=== PATIENT | female | born 1950 | race Caucasian/White ===

== ENCOUNTER → 2017-01-10 | Outpatient (CLI) | payer OTHER, MEDICARE ==
[~2017-01-10] MED LIST: AMLO5TAB PO; BP MED; CENTRUM SILVER1 TA1 PO; EFFEXOR XR150 MG PO; ESTRADIOL0.5 MG PO; FISH OIL1000 MG PO; LORTAB 5/500 501 TAB PO; MOTRIN 400MG.400 MG PO; SIMVASTATIN10 MG PO
--- NOTE | 2017-01-14 11:30 | RADIOLOGY REPORT PS360 ---
DIG MAMM-SCREEN SHEILA W/CAD CAD Screening COMPARISON: Digital mammograms 12/25/2015 and follow-up additional views left breast 01/09/2016 INDICATION: There is no personal or family history of breast cancer. There has been previous breast reduction surgery bilaterally. TECHNIQUE: Standard CC and MLO images were obtained. R2 CAD reviewed. FINDINGS: Again noted is a diffusely dense and heterogenic parenchymal pattern primarily upper outer quadrants. Exaggerated cc views were obtained for better visualization of the upper outer quadrants of both breasts. There are few scattered benign-appearing calcifications in each breast. There is no new or suspicious lesion and there are no suspicious microcalcifications IMPRESSION: Dense and heterogenic parenchymal pattern with no suspicious lesion seen recommend yearly follow-up BI-RADS CATEGORY: 2_Benign RECOMMENDED FOLLOWUP: 12M 12 MONTH FOLLOW-UP (A letter has been sent to the patient regarding results of the study.)
== END ==
LOC: RAD 10:00
DX: Z12.31 Encounter for screening mammogram for malignant neoplasm of breast (principal)
CPT/HCPCS: G0202

== ENCOUNTER 2017-02-24 10:34 | Day surgery (SDC) | payer MEDICARE, OTHER ==
--- NOTE | 2017-02-24 12:33 | Operative Note ---
Colonoscopy ([facility]) Procedure date: 02/24/17 Date of : 46 Procedure:Colonoscopy Colonoscopy Indications: Mrs. Osborne is a 66-year-old female who is here for follow-up screening/ surveillance colonoscopy. She did have a colonoscopy in July [address] Terrance Zurita which was normal except for sigmoid diverticulosis. The patient does state that she has a long history of irritable bowel syndrome since [place]. The patient has some intermittent constipation and lower abdominal discomfort. She does take Metamucil daily. She uses dicyclomine when necessary. She does have some occasional bleeding especially after the bowel preparation. She reports no weight loss or family history of colon cancer. Performing Provider: Vaughn Elizondo MD Referrring Provider: Joseph Lynch M.D./Dorie RAMOS Sedation: Fentanyl 200 mg IV/Versed 9 mg IV Procedure: Prior to the procedure, a history and physical exam was performed, and patient medications and allergies were reviewed. The risks and benefits of the procedure and the sedation options and risks were discussed with the patient. All questions were answered and informed consent was obtained. Patient identification and proposed procedure were verified by the physician and the nurse. The patient was placed in a left lateral decubitus position. Throughout the procedure, the patient's blood pressure, pulse, and oxygen saturations were monitored continuously. Findings: On digital rectal examination there was normal rectal tone. There were no external hemorrhoids. The colonoscope was introduced through the anal canal to the rectum and advanced to the cecum. The ileocecal valve and appendiceal orifice were identified. The scope was advanced a short distance into the ileum which appeared grossly normal. The scope was then withdrawn into the colon. The cecum, ascending and transverse colon and mucosa were grossly normal. There were scattered diverticuli throughout the descending and sigmoid colon (LEFT colon). The rectum itself was normal. Upon retroflexion within the rectum there were grade 1-2 internal hemorrhoids. Impressions: 1. Left-sided diverticulosis 2. Grade 1-2 internal hemorrhoids Recommendations: The patient will not require screening/surveillance colonoscopy again for 10 years by ACS guidelines. I would encourage continuation of fiber supplementation on a long-term daily maintenance basis. I will recommend dietary measures and probiotic therapy. Complications: None EBL (ml): 0 at 1232
[2017-02-24 15:03] VITALS: BP 135/78
== END 2017-02-24 13:38 | disposition home or self-care (01) ==
LOC: SDC 10:34
PROVIDERS: Internal Medicine Gastroenterology
PROC: 0DJD8ZZ Inspection of Lower Intestinal Tract, Via Natural or Artificial Opening Endoscopic (ICD-10-PCS; principal; 2017-02-24 11:30)
DX: Z12.11 Encounter for screening for malignant neoplasm of colon (principal); K57.30 Diverticulosis of large intestine without perforation or abscess without bleeding; K64.1 Second degree hemorrhoids

== ENCOUNTER 2017-07-14 15:21 | Emergency (ER) | payer MEDICARE, OTHER ==
[~2017-07-14] VITALS: Ht 167.6 cm; Wt 67.1 kg
[2017-07-14] MEDS ORDERED: LISINOPRIL10 MG PO (15:38)
[2017-07-14] MEDS ORDERED: BENTYL GENERIC10 MG PO (15:39)
[2017-07-14] MEDS ORDERED: GABAPENTIN100 M1 PO (15:39)
--- NOTE | 2017-07-14 16:09 | Urgent Treatment Center Report ---
See Addendum History of Present Issue Date/Time Seen by Provider 07/14/17 0015 Visit Reason Pt arrived:Walked Presenting Problem:PT STATES SHE WAS THROWN FROM HER HORSE. RT WRIST INJURY Location if Accident:Home Onset of symptoms date/time:/ or onset unknown for:MEDICAL HX UNKNOWN Have you (or family members/close friends) recently traveled outside the [place]? N If Yes, where/when: Have you had exposure to infectious disease within the past month? TB? Other? Specify: Patient states that she riding a horse when something spooked the horse and it bucked her off State that she threw out her hand to catch herself and felt the right wrist pop and give. Patient complaining of pain and swelling in wrist area. Also has an abrasion noted to nose and left cheek area but denies being injured anywhere else besides the wrist ALLERGIES Coded Allergies: No Known Allergies (02/21/17) Home Medications Reported Medications Ibuprofen (MOTRIN 400MG) 800 MG PO BID Simvastatin 10 MG PO QHS VENLAFAXINE HCL (Effexor XR 150MG) 150 MG PO DAILY Multivitamin, Minerals, And (Centrum Silver) 1 TAB PO DAILY Ibuprofen (MOTRIN 400MG) 400 MG PO Q6HP Estradiol 0.5 MG PO DAILY Lisinopril 10 MG PO DAILY Gabapentin (Gabapentin 100MG) 100 MG PO BID Dicyclomine Hcl (Bentyl (Generic) 10MG Capsule) 10 MG PO PRN PRN ABD PAIN History Medical History General Angina: No NE: No Hypertension? Yes Hyperlipidemia? No COPD? No Asthma? No Hernia? No CVA? No Seizures? No Diabetes? No UTI? No Stones? Yes GB Disease: No Hepatitis? No Cataracts? Yes Glaucoma? No MRSA? No TB? No Cancer? No Immunization HX DT/Tetanus 1-4 YRS Flu THIS YR Pneumonia NEVER Surgical Hx Previous Surgery?Y TOES RIGHT FEMUR RIGHT MIDDLE FINGER-WART BREAST REDUCTION Family History Family HX Diabetes Yes CAD Yes Hypertension Yes Cancer Yes TB No Social History Smoking Hx Smoker: Never Smoker Tobacco: No Alcohol Alcohol: No Review of Systems All Other Systems Reviewed and Negative Comment Pain and deformity to right wrist area after being thrown off horse as something spooked the horse and it threw her off Physical Exam Vital Signs Vital Signs Date Time Temp Pulse Resp B/P Pulse O2 O2 Flow FiO2 Ox Delivery Rate 07/14 1544 18 07/14 1529 98.7 120 18 170/108 98 General Appearance normal appearance, WD/WN, no apparent distress Ear, Nose, Throat Abrasion noted to nose and left cheek area no tenderness no swelling Neck normal inspection, non-tender, supple, full range of motion Respiratory Status Yes: trachea midline, chest symmetrical, non tender chest. No: respiratory distress. Lung Sounds bilateral: normal breath sounds, lungs clear. 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 No Results/Orders Current Medication Orders Sig/Jossie Start time Last Medication Dose Route Stop Time Status Admin Ketorolac 60 MG ONCE ONE 07/14 1545 DC 07/14 Tromethamine IM 07/14 1546 1544 Ketorolac 0 .STK-MED ONE 07/14 1531 DC Tromethamine .ROUTE Orders Procedure Date/time Status WRIST-3 VIEWS-RT 07/14 1528 Active Progress [facility] Progress Notes 1 Date 07/14/[address] Petty mcfarland, called [facility] and discussed xray results and findings and he recommended that patient be transfered to . [facility] Progress Notes 2 Date 07/14/[address] Lyn due to patient needing to be transfered out to , Dr Lyn seen patient and assessed her and all performed full examination, [facility] and patient being transfered to the care of Dr Osborne Patient care turned over to Dr Lyn [facility] Progress Notes 3 Date 07/14/17 Time 1620 Comment Patient requested to attempt to be sent back to Dr Ayoub however when we called the office, office advised that he was not substation operator conversion for Emergency and she would have to go to the hospital and be seen there and see whoever was substation operator conversion Patient declined and agreed to go to [facility] Progress Notes 4 Date 07/14/17 Time 1702 Comment Patient refused EMS state that she would rather go by care, patient verbalized understanding of risks and benefits Departure Departure Time of Disposition 1700 Disposition Still a Patient Clinical Impression Primary Impression: Wrist fracture Qualifiers: Encounter type: initial encounter Fracture type: closed Laterality: right Qualified Code: S62.101A - Fracture of unspecified carpal bone, right wrist, initial encounter for closed fracture Condition STABLE Referrals Leyda Lynch MD (Family) Additional Instructions GO straight to ER as advised by Dr Lyn to the care of Dr Osborne Discharge Counseling Counseled pt/family regarding diagnosis, test results, follow up needs at 1701
--- NOTE | 2017-07-14 16:09 | Urgent Treatment Center Report ---
See Addendum History of Present Issue Date/Time Seen by Provider 07/14/17 3175 Visit Reason Pt arrived:Walked Presenting Problem:PT STATES SHE WAS THROWN FROM HER HORSE. RT WRIST INJURY Location if Accident:Home Onset of symptoms date/time:/ or onset unknown for:MEDICAL HX UNKNOWN Have you (or family members/close friends) recently traveled outside the [place]? N If Yes, where/when: Have you had exposure to infectious disease within the past month? TB? Other? Specify: Patient states that she riding a horse when something spooked the horse and it bucked her off State that she threw out her hand to catch herself and felt the right wrist pop and give. Patient complaining of pain and swelling in wrist area. Also has an abrasion noted to nose and left cheek area but denies being injured anywhere else besides the wrist ALLERGIES Coded Allergies: No Known Allergies (02/21/17) Home Medications Reported Medications Ibuprofen (MOTRIN 400MG) 800 MG PO BID Simvastatin 10 MG PO QHS VENLAFAXINE HCL (Effexor XR 150MG) 150 MG PO DAILY Multivitamin, Minerals, And (Centrum Silver) 1 TAB PO DAILY Ibuprofen (MOTRIN 400MG) 400 MG PO Q6HP Estradiol 0.5 MG PO DAILY Lisinopril 10 MG PO DAILY Gabapentin (Gabapentin 100MG) 100 MG PO BID Dicyclomine Hcl (Bentyl (Generic) 10MG Capsule) 10 MG PO PRN PRN ABD PAIN History Medical History General Angina: No IN: No Hypertension? Yes Hyperlipidemia? No COPD? No Asthma? No Hernia? No CVA? No Seizures? No Diabetes? No UTI? No Stones? Yes GB Disease: No Hepatitis? No Cataracts? Yes Glaucoma? No MRSA? No TB? No Cancer? No Immunization HX DT/Tetanus 1-4 YRS Flu THIS YR Pneumonia NEVER Surgical Hx Previous Surgery?Y TOES RIGHT FEMUR RIGHT MIDDLE FINGER-WART BREAST REDUCTION Family History Family HX Diabetes Yes CAD Yes Hypertension Yes Cancer Yes TB No Social History Smoking Hx Smoker: Never Smoker Tobacco: No Alcohol Alcohol: No Review of Systems All Other Systems Reviewed and Negative Comment Pain and deformity to right wrist area after being thrown off horse as something spooked the horse and it threw her off Physical Exam Vital Signs Vital Signs Date Time Temp Pulse Resp B/P Pulse O2 O2 Flow FiO2 Ox Delivery Rate 07/14 1544 18 07/14 1529 98.7 120 18 170/108 98 General Appearance normal appearance, WD/WN, no apparent distress Ear, Nose, Throat Abrasion noted to nose and left cheek area no tenderness no swelling Neck normal inspection, non-tender, supple, full range of motion Respiratory Status Yes: trachea midline, chest symmetrical, non tender chest. No: respiratory distress. Lung Sounds bilateral: normal breath sounds, lungs clear. 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 No Results/Orders Current Medication Orders Sig/Jossie Start time Last Medication Dose Route Stop Time Status Admin Ketorolac 60 MG ONCE ONE 07/14 1545 DC 07/14 Tromethamine IM 07/14 1546 1544 Ketorolac 0 .STK-MED ONE 07/14 1531 DC Tromethamine .ROUTE Orders Procedure Date/time Status WRIST-3 VIEWS-RT 07/14 1528 Active Progress [facility] Progress Notes 1 Date 07/14/[address] Petty mcfarland, called [facility] and discussed xray results and findings and he recommended that patient be transfered to . [facility] Progress Notes 2 Date 07/14/[address] Lyn due to patient needing to be transfered out to , Dr Lyn seen patient and assessed her and all performed full examination, [facility] [place] [facility] and patient being transfered to the care of Dr Osborne Patient care turned over to Dr Lyn [facility] Progress Notes 3 Date 07/14/17 Time 1620 Comment Patient requested to attempt to be sent back to Dr Ayoub however when we called the office, office advised that he was not clinical application specialist for Emergency and she would have to go to the hospital and be seen there and see whoever was clinical application specialist Patient declined and agreed to go to [facility] Progress Notes 4 Date 07/14/17 Time 1702 Comment Patient refused EMS state that she would rather go by care, patient verbalized understanding of risks and benefits Departure Departure Time of Disposition 1700 Disposition Still a Patient Clinical Impression Primary Impression: Wrist fracture Qualifiers: Encounter type: initial encounter Fracture type: closed Laterality: right Qualified Code: S62.101A - Fracture of unspecified carpal bone, right wrist, initial encounter for closed fracture Condition STABLE Referrals Leyda Lynch MD (Family) Additional Instructions GO straight to ER as advised by Dr Lyn to the care of Dr Osborne Discharge Counseling Counseled pt/family regarding diagnosis, test results, follow up needs at 1706
[2017-07-14 18:39] VITALS: BP 160/93
--- NOTE | 2017-07-15 04:58 | RADIOLOGY REPORT PS360 ---
WRIST-3 VIEWS-RT HISTORY: Pain following injury THROWN FROM HORSE ORDERING PHYSICIAN: DUKE NATARAJAN APRN PATIENT AGE: 66 years COMPARISON: None FINDINGS: Severely comminuted fracture involves the distal radius with impaction of the fracture fragments with extension into articular surface. There is mild foreshortening of the distal fracture fragment as well and is 12 mm dorsal and 15 mm lateral displacement of the distal fracture fragment of the radius there is widening of the scapholunate joint. There is avulsion of the ulnar styloid there is lateral displacement of the carpal bones on the radius. IMPRESSION: Severely comminuted and displaced distal radial fracture with associated ulnar styloid avulsion and widening of the scapholunate joint
== END 2017-07-14 18:42 | disposition still patient (30) ==
LOC: UTC 15:21 → ER 15:27 → UTC 15:27 → ER 18:42
DX: S62.101A Fracture of unspecified carpal bone, right wrist, initial encounter for closed fracture (principal); V80.010A Animal-rider injured by fall from or being thrown from horse in noncollision accident, initial encounter; Y93.52 Activity, horseback riding; Y92.73 Farm field as the place of occurrence of the external cause; Z79.899 Other long term (current) drug therapy; I10 Essential (primary) hypertension

== ENCOUNTER → 2017-07-18 | Outpatient (CLI) | payer MEDICARE, OTHER ==
[2017-07-18 16:45] LABS: BUN 20 mg/dL (7-18)
[2017-07-18 16:46] LABS: GFR (ESTIMATED) 62 ML/MIN (59-)
== END ==
LOC: LAB 15:01
PROVIDERS: Family Medicine
DX: S62.101A Fracture of unspecified carpal bone, right wrist, initial encounter for closed fracture (principal); Z01.810 Encounter for preprocedural cardiovascular examination; Z01.811 Encounter for preprocedural respiratory examination; Z01.812 Encounter for preprocedural laboratory examination

== ENCOUNTER 2017-09-05 07:44 | Day surgery (SDC) | payer MEDICARE, OTHER ==
[~2017-09-05 07:44] MED LIST changes: +BENTYL GENERIC10 MG PO; +GABAPENTIN100 M1 PO; +LISINOPRIL10 MG PO
--- NOTE | 2017-09-05 09:00 | Operative Note ---
Upper GI Endoscopy Procedure date: 09/05/17 Date of : 46 Procedure:Upper GI Endoscopy Esophagogastroduodenoscopy with cold biopsies and TTS balloon dilation Indications: Mrs. Osborne is a 67-year-old female who has had long-standing IBS and reflux. This is manifested by globus sensation or fullness in the throat with frequent clearance of the throat and mucus accumulation. She did try pantoprazole and omeprazole without success but the symptoms are controlled with Nexium. She has never had heartburn or classic reflux. She does have some mild bloating and burping. She also notes some occasional dysphagia. She reports some lower abdominal discomfort. She reports no nausea, early satiety, epigastric pain or chest pain. She reports no melena or weight loss. She has not had previous endoscopy. Performing Provider: Vaughn Elizondo MD Referring Provider: Joseph Lynch M.D. Sedation: Fentanyl 200 mg IV/Versed 9 mg IV Procedure: Prior to the procedure, a history and physical exam was performed, and patients medications and allergies were reviewed. The risks and benefits of the procedure and the sedation options and risks were discussed with the patient. All questions were answered and informed consent was obtained. The patient was brought to the procedure room. Patient identification and proposed procedure were verified by the physician and the nurse. The patient was placed in a left lateral decubitus position and the scope was passed under direct vision. Throughout the procedure, the patient's blood pressure, pulse, and oxygen saturations were monitored continuously. The endoscope was introduced through the mouth, and advanced to the second part of duodenum. The upper GI endoscopy was accomplished without difficulty. The patient tolerated the procedure well. Findings: The scope was passed directly into the upper esophagus and advanced to the third portion of the duodenum. The post bulbar duodenum and duodenal bulb were normal with normal mucosa and conniventes. Cold biopsies were taken from the post bulbar duodenum to rule out celiac disease. The scope was withdrawn through a normal duodenal bulb and pylorus into the stomach. There was bile reflux with linear erythema of the antrum and body consistent with linear reactive gastritis. The remainder of the antrum, body and fundus of the stomach were grossly normal. Upon retroflexion there was no hiatal hernia. 2 biopsies were taken in the antrum and along the lesser curvature for histology. The scope was then withdrawn into the esophagus. There was no evidence of reflux esophagitis or Ureña's. There was no Schatzki's ring. There were tertiary contractions and evidence of mild esophageal dysmotility. The entire esophagus was dilated to 60 Slovenian/20 mm with a TTS hydrostatic balloon. There was some resistance at the cricopharyngeus/UES (upper esophageal sphincter). The remainder of the esophageal mucosa was normal. Immediate complications: None EBL (ml): 0 Impression: 1. Nonerosive gastroesophageal reflux disease with mild esophageal dysmotility and cricopharyngeal spasm status post dilation to 20 mm 2. Bile reflux with mild linear reactive gastritis Recommendations: The patient has uncomplicated gastroesophageal reflux disease and does not require long-term PPI therapy. In other words, the risks outweigh the benefits since she does not have complicated gastroesophageal reflux disease (reflux esophagitis or Ureña's). We will discuss additional treatment options. 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 I will follow-up the biopsies. at 0900
[2017-09-05 12:59] VITALS: BP 136/79
== END 2017-09-05 10:02 | disposition home or self-care (01) ==
LOC: SDC 07:44
PROVIDERS: Internal Medicine Gastroenterology
PROC: 0DB68ZX Excision of Stomach, Via Natural or Artificial Opening Endoscopic, Diagnostic (ICD-10-PCS; 2017-09-05)
PROC: 0D758ZZ Dilation of Esophagus, Via Natural or Artificial Opening Endoscopic (ICD-10-PCS; 2017-09-05)
PROC: 0DB98ZX Excision of Duodenum, Via Natural or Artificial Opening Endoscopic, Diagnostic (ICD-10-PCS; principal; 2017-09-05 08:30)
DX: K21.9 Gastro-esophageal reflux disease without esophagitis (principal); K22.4 Dyskinesia of esophagus; K29.60 Other gastritis without bleeding; K58.8 Other irritable bowel syndrome
CPT/HCPCS: C1726